=== PATIENT | male | born 1990 | race Caucasian/White ===

== ENCOUNTER 2016-03-29 12:44 | Emergency (ER) | payer BC ==
[2016-03-29 13:11] VITALS: BP 129/83
[2016-03-29] MEDS ORDERED: Ibuprofen TAB* 600 MG PO ONE (13:36)
--- NOTE | 2016-03-29 14:02 | RAD ---
INDICATION: RIGHT hand pain post fall. Specifically injury to the RIGHT fifth digit. COMPARISON: None. TECHNIQUE: AP, lateral, and oblique views RIGHT hand. REPORT: Dorsal dislocation at the fifth proximal interphalangeal joint with the base of the middle phalanx perched at the dorsal margin of the head of the proximal phalanx. Associated intra-articular fracture at the ulnar volar base of the middle phalanx. Surrounding soft tissue swelling. IMPRESSION: Fifth proximal interphalangeal joint fracture dislocation.
--- NOTE | 2016-03-29 14:22 | RAD ---
Indication: Reduction of right fifth middle phalanx dislocation. 2 views of the right hand demonstrates reduction of the previously identified dorsal dislocation middle phalanx. Volar plate fracture is noted at the proximal end middle phalanx. IMPRESSION: Reduction of previously identified dorsal dislocation of the middle phalanx. Volar plate fracture middle phalanx fifth digit.
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
== END 2016-03-29 14:24 | disposition home or self-care (01) ==
LOC: ED 12:44
DX: S62.616A Displaced fracture of proximal phalanx of right little finger, initial encounter for closed fracture (principal); V19.9XXA Pedal cyclist (driver) (passenger) injured in unspecified traffic accident, initial encounter; Y93.55 Activity, bike riding; Y92.9 Unspecified place or not applicable
CPT/HCPCS: 99282; A9270-GY